=== PATIENT | female | born 1985 | race Caucasian/White ===

== ENCOUNTER 2017-05-25 08:00 | Outpatient (CLI) | payer OTHER | END 2017-05-25 08:01 | LOC: LAB.F 08:00 | DX: Z31.9 Encounter for procreative management, unspecified (principal) | CPT/HCPCS: 36415; 82465; 84144 ==

== ENCOUNTER 2018-07-29 13:58 | Emergency (ER) | payer MEDICAID, OTHER ==
[2018-07-29 14:31] LABS: BASOPHILS # (AUTO) 0.1 10^3/uL (0.0-0.1); BASOPHILS % (AUTO) 0.7 %; EOSINOPHILS # (AUTO) 0.2 10^3/uL (0.0-0.7); HGB - HEMOGLOBIN 13.6 g/dL (12.0-16.0); LYMPHOCYTES # (AUTO) 1.8 10^3/uL (1.5-3.5); LYMPHOCYTES % (AUTO) 20.5 %; MEAN CORPUSCULAR HEMOGLOBIN 30.6 pg (27.0-31.0); MEAN PLATELET VOLUME 7.2 fL (7.9-10.8); MONOCYTES # (AUTO) 0.5 10^3/uL (0.0-1.0); MONOCYTES % (AUTO) 5.6 %; NEUTROPHILS # (AUTO) 6.1 10^3/uL (1.5-6.6); NEUTROPHILS % (AUTO) 71.2 %; PLT - PLATELET COUNT 233 10^3/uL (130-450); RED BLOOD COUNT 4.45 10^6/uL (4.20-5.40); WHITE BLOOD COUNT 8.6 x10^3/uL (4.8-10.8)
[2018-07-29 14:40] LABS: BILIRUBIN,URINE NEGATIVE (NEGATIVE); GLUCOSE, URINE (UA) NEGATIVE (NEGATIVE); KETONES,URINE (UA) NEGATIVE (NEGATIVE); LEUKOCYTE ESTERASE, URINE NEGATIVE (NEGATIVE); NITRITE,URINE NEGATIVE (NEGATIVE); OCCULT BLOOD,URINE SMALL (NEGATIVE); PROTEIN,URINE NEGATIVE (NEGATIVE); UROBILINOGEN,URINE 0.2 (NORMAL) E.U./dL (NORMAL)
[2018-07-29 14:43] LABS: CLARITY,URINE CLEAR (CLEAR)
[2018-07-29 14:46] LABS: ALBUMIN/GLOBULIN RATIO 1.5 (1.0-2.2); BILIRUBIN,TOTAL 0.9 mg/dL (0.2-1.0); CALCIUM 8.9 mg/dL (8.5-10.3); CREATININE 0.9 mg/dL (0.4-1.0); TOTAL PROTEIN 6.7 g/dL (6.7-8.2)
[2018-07-29 14:56] LABS: BACTERIA,URINE Rare /HPF (None Seen); RBC,URINE 0-5 /HPF (0-5); SQUAMOUS EPITHELIAL CELL,UR RARE Squamous (<= Few)
--- NOTE | 2018-07-29 16:00 | ED Physician Documentation ---
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 Had a small amount of vaginal bleeding yesterday and light spotting today. Review of Systems Constitutional: denies: Fever, Chills Nose: denies: Rhinorrhea / runny nose, Congestion GI: denies: Vomiting, Diarrhea Skin: denies: Rash Musculoskeletal: denies: Neck pain, Back pain Neurologic: denies: Focal weakness, Numbness, Headache PD PAST MEDICAL HISTORY - Past Medical History Past Medical History: Yes - Past Surgical History Past Surgical History: No - Present Medications Home Medications: Ambulatory Orders Medication Instructions Recorded Confirmed Vitamin [Trinatal Rx 1] 1 tab PO DAILY #30 tablet 07/29/18 - Allergies Allergies/Adverse Reactions: Allergies Allergy/AdvReac Type Severity Reaction Status Date / Time No Known Drug Allergies Allergy Verified 07/29/18 14:05 - Social History Does the pt smoke?: No Smoking Status: Never smoker Does the pt drink ETOH?: No Does the pt have substance abuse?: No - Immunizations Immunizations are current?: Yes - POLST Patient has POLST: No PD ED PE NORMAL - Vitals Vital signs reviewed: Yes - General General: Alert and oriented X 3, No acute distress - HEENT HEENT: Moist mucous membranes - Neck Neck: Supple, no meningeal sign - Cardiac Cardiac: RRR, Strong equal pulses - Respiratory Respiratory: No respiratory distress, Clear bilaterally - Abdomen Abdomen: Soft, Non tender, Non distended - Derm Derm: Warm and dry - Extremities Extremities: No edema, No calf tenderness / cord - Neuro Neuro: Alert and oriented X 3 Results - Vitals Vitals: Vital Signs - 24 hr 07/29/18 07/29/18 07/29/18 14:04 14:05 16:55 Temperature 36.1 C L 36.1 C L 36.9 C Heart Rate 91 91 69 Respiratory 18 18 18 Rate Blood Pressure 161/80 H 161/80 H 134/91 H O2 Saturation 97 97 99 07/29/18 17:39 Temperature Heart Rate 79 Respiratory 17 Rate Blood Pressure 155/76 H O2 Saturation 99 Oxygen O2 Source Room air - Labs Labs: Laboratory Tests 07/29/18 07/29/18 07/29/18 14:20 14:20 14:20 WBC 8.6 RBC 4.45 Hgb 13.6 Hct 40.1 MCV 90.0 MCH 30.6 MCHC 34.0 RDW 13.0 Plt Count 233 MPV 7.2 L Neut # (Auto) 6.1 Lymph # (Auto) 1.8 Isabella # (Auto) 0.5 Eos # (Auto) 0.2 Baso # (Auto) 0.1 Absolute Nucleated RBC 0.00 Nucleated RBC % 0.0 Sodium 136 Potassium 3.9 Chloride 106 Carbon Dioxide 21 Anion Gap 9.0 BUN 13 Creatinine 0.9 Estimated GFR (MDRD) 72 L Glucose 102 H Calcium 8.9 Total Bilirubin 0.9 AST 20 ALT 23 Alkaline Phosphatase 28 L Total Protein 6.7 Albumin 4.0 Globulin 2.7 Albumin/Globulin Ratio 1.5 Lipase 42 HCG, Quant 32681.00 Urine Color Urine Clarity Urine pH Ur Specific [place] Urine Protein Urine Glucose (UA) Urine Ketones Urine Occult Blood Urine Nitrite Urine Bilirubin Urine Urobilinogen Ur Leukocyte Esterase Urine RBC Urine WBC Ur Squamous Epith Cells Urine Bacteria Ur Microscopic Review Urine Culture Comments Blood Type 07/29/18 07/29/18 14:20 14:34 WBC RBC Hgb Hct MCV MCH MCHC RDW Plt Count MPV Neut # (Auto) Lymph # (Auto) Isabella # (Auto) Eos # (Auto) Baso # (Auto) Absolute Nucleated RBC Nucleated RBC % Sodium Potassium Chloride Carbon Dioxide Anion Gap BUN Creatinine Estimated GFR (MDRD) Glucose Calcium Total Bilirubin AST ALT Alkaline Phosphatase Total Protein Albumin Globulin Albumin/Globulin Ratio Lipase HCG, Quant Urine Color YELLOW Urine Clarity CLEAR Urine pH 7.0 Ur Specific [place] 1.020 Urine Protein NEGATIVE Urine Glucose (UA) NEGATIVE Urine Ketones NEGATIVE Urine Occult Blood SMALL H Urine Nitrite NEGATIVE Urine Bilirubin NEGATIVE Urine Urobilinogen 0.2 (NORMAL) Ur Leukocyte Esterase NEGATIVE Urine RBC 0-5 Urine WBC 0-3 Ur Squamous Epith Cells RARE Squamous Urine Bacteria Rare Ur Microscopic Review INDICATED Urine Culture Comments NOT INDICATED Blood Type A POSITIVE - Rads (name of study) OB US Radiology: Prelim report reviewed, EMP read contemporaneously, See rad report (1. Intrauterine of uncertain viability. Early intrauterine gestational sac with size corresponding to a gestational age of 5 weeks 6 days. A pole is questionably visualized but not measurable. Recommend follow-up ultrasound in 7-10 days to assess viability. 2. Assigned dating is ANNEMARIE 6 weeks 0 days based on LMP. 3. There is a complex subchorionic hematoma measuring 3 x 2 x 3.3 cm. 4. There are 2 uterine masses, presumed fibroids. 5. Both ovaries are enlarged and contain hypoechoic structures suggestive of endometriomas. ) PD MEDICAL DECISION MAKING - ED course Complexity details: reviewed results, re-evaluated patient, considered differential, d/w patient, d/w family ED course: 32-year-old female presents to the emergency department what appears to be an intrauterine . There is a pole, heart rate of 130. We will have her follow-up with gynecology in approximately 3 days for repeat hCG. If that is going up, she will need a repeat ultrasound in 7-10 days. Patient is well- appearing, nontoxic. Afebrile. Not bleeding here. Patient counseled regarding signs and symptoms for which I believe and urgent re-evaluation would be necessary. Patient with good understanding of and agreement to plan and is comfortable going home at this time This document was made in part using voice recognition software. While efforts are made to proofread this document, sound alike and grammatical errors may occur. Departure - Departure Disposition: 01 Home, Self Care Clinical Impression: Threatened affecting intrauterine Condition: Good Instructions: ED Miscarriage Poss Follow-Up: [facility] [Provider Group] - Within 3 Days Jimmy Barlow MD [Provider Admit Priv/Credential] - Prescriptions: Vitamin [Trinatal Rx 1] 1 tab PO DAILY #30 tablet Comments[place] [address] [place]. You should have this retested in 2-3 days to make sure it is rising appropriately. Return if you worsen. You are approximately 5 weeks and 6 days along. Discharge Date/Time: 07/29/18 17:39
--- NOTE | 2018-07-29 17:39 | Ultrasound Report ---
Reason: 7 weeks EGA vag bleed Procedure Date: 07/29/2018 Accession Number: [id number] / [id number] Procedure: US - OB First Trimester CPT Code: FULL RESULT: EXAM: FIRST TRIMESTER OBSTETRIC ULTRASOUND (Less than 11 weeks) EXAM DATE: 07/29/2018 04:50 PM. CLINICAL HISTORY: 7 weeks EGA vag bleed. LMP: 06/17/2018. COMPARISONS: None available. TECHNIQUE: Transabdominal and transvaginal ultrasound examination with static image documentation. CLINICAL DATES: EGA 6 weeks 0 days with ANNEMARIE 03/24/2019 based on LMP. ASSESSMENT: Gestational Sac: Single intrauterine. Mean gestational sac diameter: 15.9 mm = 5 weeks 6 days. Embryo: CRL (crown-rump length) not accurately measurable Cardiac activity: The technologist measured a rate of beats per minute but I am not confident based on the image that this is the heart rate. Yolk sac: 3 mm. Amniotic fluid: Not accurately assessed at this gestational age. Early placenta: Not visible at this gestational age. Other: There is a complex subchorionic hematoma measuring 3 x 2 x 3.3 cm. MATERNAL STRUCTURES: Uterus: Retroverted. 1. There is a 2.8 x 2.3 x 3 cm subserosal mass, presumed fibroid at the fundus. 2. There is a 2.6 x 2.4 x 2.6 cm intramural mass, presumed fibroid at the fundus. Cervix: Closed. Right Ovary/Adnexa: The ovary measures 8.3 x 5.5 x 5.3 cm, volume 54 cc. There is a hypoechoic structure with low-level internal echoes measuring 5 x 4 x 5 cm. Left Ovary/Adnexa: The ovary measures 2.4 x 4.3 x 2.9 cm, volume 37 cc. There is a hypoechoic structure with low-level internal echoes measuring 2.5 x 2 x 2.7 cm. Free Fluid: None. Other: None. IMPRESSION: 1. Intrauterine of uncertain viability. Early intrauterine gestational sac with size corresponding to a gestational age of 5 weeks 6 days. A pole is questionably visualized but not measurable. Recommend follow-up ultrasound in 7-10 days to assess viability. 2. Assigned dating is ANNEMARIE 6 weeks 0 days based on LMP. 3. There is a complex subchorionic hematoma measuring 3 x 2 x 3.3 cm. 4. There are 2 uterine masses, presumed fibroids. 5. Both ovaries are enlarged and contain hypoechoic structures suggestive of endometriomas. RADIA
[2018-07-29 17:40] VITALS: BP 155/76
== END 2018-07-29 17:39 | disposition home or self-care (01) ==
LOC: ED 13:58
DX: O20.0 Threatened abortion (principal); Z3A.01 Less than 8 weeks gestation of pregnancy
CPT/HCPCS: 36415; 76801; 76817; 80053; 81001; 81003; 83690; 84702; 85025; 86900; 86901; 87070; 87086; 87205; 99283

== ENCOUNTER 2018-08-01 13:47 | Outpatient (CLI) | payer MEDICAID | END 2018-08-01 13:48 | disposition home or self-care (01) | LOC: LAB.F 13:47 | PROVIDERS: ATTEND Midwife | DX: Z31.9 Encounter for procreative management, unspecified (principal); Z33.1 Pregnant state, incidental | CPT/HCPCS: 36415; 81599; 84702 ==

== ENCOUNTER 2018-09-09 13:11 | Outpatient (CLI) | payer MEDICAID ==
--- NOTE | 2018-09-09 15:30 | Ultrasound Report ---
Reason: Procedure Date: 09/09/2018 Accession Number: [id number] / [id number] Procedure: US - OB First Trimester CPT Code: FULL RESULT: EXAM: FIRST TRIMESTER OBSTETRIC ULTRASOUND (Less than 11 weeks) EXAM DATE: 09/09/2018 02:00 PM. CLINICAL HISTORY: . LMP: 06/17/2018. COMPARISONS: None. TECHNIQUE: Transabdominal ultrasound examination with static image documentation. CLINICAL DATES: EGA 12 weeks 0 days with ANNEMARIE 03/24/2019 based on LMP. ASSESSMENT: Gestational Sac: Not applicable. Embryo: CRL (crown-rump length) 6 mm = 12 weeks 4 days. Cardiac activity: 169 beats per minute. Yolk sac: Not applicable. Amniotic fluid: Not accurately assessed at this gestational age. Early placenta: Posterior and lateral in the fundus. Other: No perigestational fluid collection demonstrated. MATERNAL STRUCTURES: Uterus: Anteverted. Multiple fibroids are noted measuring up to 4.5 cm. Cervix: Closed. Right Ovary/Adnexa: The ovary measures 5.1 x 4.4 x 4.9 cm, volume 58 cc. 4.1 x 4.4 x 3.8 cm cyst is noted. Left Ovary/Adnexa: The ovary measures 5.5 x 3.2 x 4.1 cm, volume 37 cc. Note is made of a 4.0 x 3.2 x 3.2 cm cyst. Free Fluid: None. Other: None. IMPRESSION: 1. Single viable intrauterine at EGA 12 weeks 4 days with ANNEMARIE 03/20/2019 based on crown-rump length, which is concordant with clinical dates. 2. Assigned dating is ANNEMARIE 12 weeks 0 days based on LMP. KEVIN
== END 2018-09-09 13:12 | disposition home or self-care (01) ==
LOC: DI 13:11
PROVIDERS: ATTEND Obstetrics & Gynecology
DX: O36.80X0 Pregnancy with inconclusive fetal viability, not applicable or unspecified (principal); Z3A.12 12 weeks gestation of pregnancy
CPT/HCPCS: 76801

== ENCOUNTER 2018-10-17 14:48 | Outpatient (CLI) | payer MEDICAID ==
[2018-10-17 15:16] LABS: BASOPHILS % (AUTO) 0.2 %; EOSINOPHILS # (AUTO) 0.1 10^3/uL (0.0-0.7); EOSINOPHILS % (AUTO) 1.1 %; HGB - HEMOGLOBIN 12.5 g/dL (12.0-16.0); LYMPHOCYTES # (AUTO) 1.4 10^3/uL (1.5-3.5); LYMPHOCYTES % (AUTO) 16.8 %; MEAN CORPUSCULAR VOLUME 91.3 fL (81.0-99.0); MEAN PLATELET VOLUME 9.2 fL (7.9-10.8); MONOCYTES # (AUTO) 0.4 10^3/uL (0.0-1.0); MONOCYTES % (AUTO) 4.7 %; NEUTROPHILS # (AUTO) 6.4 10^3/uL (1.5-6.6); NEUTROPHILS % (AUTO) 76.6 %; PLT - PLATELET COUNT 223 10^3/uL (130-450); RED BLOOD COUNT 3.91 10^6/uL (4.20-5.40); RED CELL DISTRIBUTION WIDTH 12.4 % (12.0-15.0); WHITE BLOOD COUNT 8.3 x10^3/uL (4.8-10.8)
[2018-10-17 15:18] LABS: MUDS CUTOFF CONCENTRATIONS CUTOFF CONC BELOW:
[2018-10-17 15:37] LABS: AMPHETAMINE SCREEN,URINE NEGATIVE (NEGATIVE); BENZODIAZEPINES SCREEN, URINE NEGATIVE (NEGATIVE); COCAINE SCREEN URINE NEGATIVE (NEGATIVE); METHAMPHETAMINES SCREEN, URINE NEGATIVE (NEGATIVE); OPIATE SCREEN, URINE NEGATIVE (NEGATIVE)
[2018-10-17 15:38] LABS: METHADONE SCREEN, URINE NEGATIVE (NEGATIVE); OXYCODONE SCREEN, URINE NEGATIVE (NEGATIVE); PROPOXYPHENE SCREEN, URINE NEGATIVE (NEGATIVE); TRICYCLIC ANTIDEPRESSANT,URINE NEGATIVE (NEGATIVE)
[2018-10-18 13:26] LABS: HEPATITIS C ANTIBODY NON-REACTIVE (NON-REACTIVE)
[2018-10-18 13:27] LABS: HEPATITIS B SURFACE ANTIGEN NON-REACTIVE (NON-REACTIVE)
[2018-10-18 14:47] LABS: HIV AG/AB 4TH GEN NON-REACTIVE (NON-REACTIVE)
== END 2018-10-17 14:49 | disposition home or self-care (01) ==
LOC: LAB 14:48
PROVIDERS: ATTEND Obstetrics & Gynecology
DX: Z33.1 Pregnant state, incidental (principal)
CPT/HCPCS: 80306; 81599; 85025; 86592; 86762; 86803; 86850; 86900; 86901; 87340; 87389

== ENCOUNTER 2018-10-26 15:59 | Outpatient (CLI) | payer MEDICAID | END 2018-10-26 16:00 | disposition home or self-care (01) | LOC: LAB 15:59 | PROVIDERS: ATTEND Nurse Practitioner Obstetrics & Gynecology | DX: Z36.89 Encounter for other specified antenatal screening (principal) | CPT/HCPCS: 36415; 81599; 82105; 82677; 84702; 86336 ==

== ENCOUNTER 2018-11-03 13:59 | Outpatient (CLI) | payer MEDICAID ==
--- NOTE | 2018-11-04 09:15 | Ultrasound Report ---
Reason: ENCOUNTER FOR OTHER SPECIFIED SCREENING Procedure Date: 11/03/2018 Accession Number: [id number] / [id number] Procedure: US - OB Detailed Eval CPT Code: FULL RESULT: EXAM: COMPLETE OBSTETRICAL ULTRASOUND EXAM DATE: 11/03/2018 04:00 PM. CLINICAL HISTORY: anatomic survey. COMPARISON: None. TECHNIQUE: Real-time sonographic evaluation of the fetus performed by the pantry steward/stewardess. Multiple medical sales representative static images were saved for review. Additional transvaginal imaging to more accurately evaluate cervical length/placental position/etc. DATING: Established EGA 19 weeks 6 days with ANNEMARIE 03/24/2019 based on LMP. EGA 20 weeks 3 days with ANNEMARIE 03/20/2019 based on first ultrasound. EGA 20 weeks 2 days with ANNEMARIE 03/21/2019 based on the current ultrasound. GENERAL EVALUATION [place] . Cardiac activity: 163 bpm. movement: Visualized. Presentation: Variable, predominantly breech. Placenta: Posteriorly and to the right position. No evidence for previa. Umbilical cord: 3 vessel cord. Central placental cord origin. Amniotic fluid: Subjectively normal. MVP 5.2 cm. BIOMETRY Bi-Parietal Diameter (BPD): 4.9 cm, 20 weeks 6 days Head Circumference (HC): 18.3 cm, 20 weeks 5 days Abdominal Circumference (AC): 14.7 cm, 20 weeks 0 days Femur Length (FL): 3 cm, 19 weeks 2 days Estimated Weight: 314 g, 42nd percentile for 19 weeks 6 days. ANATOMY The intracranial structures, profile, face/nose/lips, spine, 4 chamber heart and outflow tracts, stomach, abdominal wall and cord insertion, diaphragm, kidneys, bladder, and extremities were visualized and demonstrate no abnormality. MATERNAL STRUCTURES Uterus: Overall within normal limits, known fibroids are not well seen today. Cervix: Long and closed. Transabdominal length 4.5 cm. Right ovary/adnexa: 4.8 x 3.5 x 4.5 cm cystic structure. Left ovary/adnexa: 2.8 x 2.0 x 2.3 cm cystic structure. Free fluid: None. IMPRESSION: 1. [place] live intrauterine with gestational age 19 weeks 6 days based on LMP. 2. Estimated weight is within expected limits for assigned dating. 3. Normal anatomic survey. No anatomic abnormalities are detected at this time. RADIA
== END 2018-11-03 14:00 | disposition home or self-care (01) ==
LOC: DI 13:59
PROVIDERS: ATTEND Nurse Practitioner Obstetrics & Gynecology
DX: Z36.89 Encounter for other specified antenatal screening (principal)
CPT/HCPCS: 76811

== ENCOUNTER 2018-12-21 12:15 | Outpatient (CLI) | payer MEDICAID ==
[2018-12-21 13:41] LABS: HGB - HEMOGLOBIN 11.6 g/dL (12.0-16.0); MEAN CORPUSCULAR HEMOGLOBIN 33.2 pg (27.0-31.0); MEAN CORPUSCULAR HGB CONC 35.7 g/dL (32.0-36.0); MEAN CORPUSCULAR VOLUME 93.1 fL (81.0-99.0); MEAN PLATELET VOLUME 9.1 fL (7.9-10.8); RED BLOOD COUNT 3.49 10^6/uL (4.20-5.40); RED CELL DISTRIBUTION WIDTH 12.5 % (12.0-15.0); WHITE BLOOD COUNT 9.2 x10^3/uL (4.8-10.8)
== END 2018-12-21 12:16 | disposition home or self-care (01) ==
LOC: LAB 12:15
PROVIDERS: ATTEND Nurse Practitioner Obstetrics & Gynecology
DX: Z36.89 Encounter for other specified antenatal screening (principal)
CPT/HCPCS: 36415; 82950; 85027; 86850

== ENCOUNTER 2018-12-23 09:57 | Outpatient (CLI) | payer MEDICAID | END 2018-12-23 09:58 | disposition home or self-care (01) | LOC: LAB 09:57 | PROVIDERS: ATTEND Nurse Practitioner Obstetrics & Gynecology | DX: Z34.90 Encounter for supervision of normal pregnancy, unspecified, unspecified trimester (principal); Z36.89 Encounter for other specified antenatal screening | CPT/HCPCS: 36415; 82951; 82952 ==

== ENCOUNTER 2019-02-28 08:00 | Outpatient (CLI) | payer MEDICAID | END 2019-02-28 23:59 | disposition home or self-care (01) | LOC: LAB.R 08:00 | PROVIDERS: ATTEND Nurse Practitioner Obstetrics & Gynecology | DX: Z36.89 Encounter for other specified antenatal screening (principal) | CPT/HCPCS: 87081; 87797 ==

== ENCOUNTER 2019-02-28 14:51 | Outpatient (CLI) | payer MEDICAID ==
[2019-02-28 15:21] LABS: MEAN CORPUSCULAR HEMOGLOBIN 32.7 pg (27.0-31.0); MEAN CORPUSCULAR HGB CONC 34.4 g/dL (32.0-36.0); MEAN CORPUSCULAR VOLUME 95.1 fL (81.0-99.0); MEAN PLATELET VOLUME 10.2 fL (7.9-10.8); RED BLOOD COUNT 4.28 10^6/uL (4.20-5.40); RED CELL DISTRIBUTION WIDTH 13.1 % (12.0-15.0); WHITE BLOOD COUNT 7.3 x10^3/uL (4.8-10.8)
[2019-02-28 15:28] LABS: ALBUMIN 3.6 g/dL (3.2-5.5); ALBUMIN/GLOBULIN RATIO 1.1 (1.0-2.2); BILIRUBIN,TOTAL 0.9 mg/dL (0.2-1.0); CALCIUM 9.2 mg/dL (8.5-10.3); CREATININE 0.6 mg/dL (0.4-1.0); TOTAL PROTEIN 6.8 g/dL (6.7-8.2); URIC ACID 7.6 mg/dL (2.6-7.2)
== END 2019-02-28 14:52 | disposition home or self-care (01) ==
LOC: LAB 14:51
PROVIDERS: ATTEND Nurse Practitioner Obstetrics & Gynecology
DX: R03.0 Elevated blood-pressure reading, without diagnosis of hypertension (principal)
CPT/HCPCS: 36415; 80053; 84550; 85027

== ENCOUNTER 2019-03-07 08:00 | Outpatient (CLI) | payer MEDICAID ==
[2019-03-08 13:04] LABS: TOTAL PROTEIN,URINE TIMED < 6 mg/dL
== END 2019-03-07 08:01 | disposition home or self-care (01) ==
LOC: LAB.R 08:00
PROVIDERS: ATTEND Nurse Practitioner Obstetrics & Gynecology
DX: O13.3 Gestational [pregnancy-induced] hypertension without significant proteinuria, third trimester (principal); Z3A.00 Weeks of gestation of pregnancy not specified
CPT/HCPCS: 82570; 84156

== ENCOUNTER 2019-03-07 15:02 | Outpatient (CLI) | payer MEDICAID ==
[2019-03-07 15:24] LABS: HGB - HEMOGLOBIN 13.7 g/dL (12.0-16.0); MEAN CORPUSCULAR HEMOGLOBIN 32.5 pg (27.0-31.0); MEAN CORPUSCULAR HGB CONC 34.9 g/dL (32.0-36.0); MEAN CORPUSCULAR VOLUME 93.3 fL (81.0-99.0); RED BLOOD COUNT 4.21 10^6/uL (4.20-5.40); RED CELL DISTRIBUTION WIDTH 13.3 % (12.0-15.0); WHITE BLOOD COUNT 7.2 x10^3/uL (4.8-10.8)
[2019-03-07 15:40] LABS: ALBUMIN 3.4 g/dL (3.2-5.5); ALBUMIN/GLOBULIN RATIO 1.1 (1.0-2.2); BILIRUBIN,TOTAL 0.5 mg/dL (0.2-1.0); CALCIUM 8.8 mg/dL (8.5-10.3); CREATININE 0.7 mg/dL (0.4-1.0); TOTAL PROTEIN 6.6 g/dL (6.7-8.2); URIC ACID 6.8 mg/dL (2.6-7.2)
== END 2019-03-07 15:03 | disposition home or self-care (01) ==
LOC: LAB 15:02
PROVIDERS: ATTEND Nurse Practitioner Obstetrics & Gynecology
DX: O13.3 Gestational [pregnancy-induced] hypertension without significant proteinuria, third trimester (principal); Z3A.00 Weeks of gestation of pregnancy not specified
CPT/HCPCS: 36415; 80053; 84550; 85027

== ENCOUNTER 2019-03-17 12:17 | Inpatient (IN) | payer MEDICAID ==
[2019-03-17] MEDS ORDERED: SODIUM CHLORIDE FLUSH 0.9% 10 ML SYRINGE IVP PRN (12:27)
--- NOTE | 2019-03-17 12:37 | HISTORY & PHYSICAL EXAMINATION ---
Admit History - Visit Reason Visit Reason: Other - : 1 Parity: 0 Premature: 0 Ectopic: 0 : 0 Care: positive: [facility] Risk/History: positive: None Complications This : positive: induced HTN Smoking Status: Never smoker - Mother's Labs Mother's Blood Type: positive: A Mother's RH: positive: Positive GBS: positive: Group B Step Negative Rubella Status: positive: Immune Meds/Allgy - Home Medications Home Medications: Ambulatory Orders Medication Instructions Recorded Confirmed Vitamin [Trinatal Rx 1] 1 tab PO DAILY #30 tablet 07/29/18 - Allergies Allergies/Adverse Reactions: Allergies Allergy/AdvReac Type Severity Reaction Status Date / Time No Known Drug Allergies Allergy Verified 07/29/18 14:05 Review of Systems - Constitutional Constitutional: denies: Fatigue, Fever, Chills, Malaise - Eyes Eyes: denies: Blurred vision, Spots in vision, Dipolpia - Cardiovascular Cariovascular: denies: Irregular heart rate, Palpitations, Chest pain, Edema - Respiratory Respiratory: denies: SOB at rest - Gastrointestinal Gastrointestinal: denies: Abdominal pain, Change in bowel habits, Nausea, Vomiting - Integumentary Integumentary: denies: Rash, Pruritis - Neurological Neurological: denies: Headache, Dizziness Physical - Abdominal Exam Uterine Resting Tone: positive: Soft - Monitoring Heart Rate Baseline: 140 Strip Review: positive: Category I - Presentation Presentation: positive: Vertex - Vaginal Exam Membranes: positive: Membranes intact - Speculum Exam Speculum Exam Performed: positive: No Plan for Labor - Plan For Labor I expect patient to be DC'd or transferred within 96 hours.: Yes Plan for Labor: HPI: Elvira is a 33yo @ 39.0wks gestation by 12.0wk U/S c/w LMP dating. She has been a patient of [facility] through the duration of her which has been complicated only by her recent diagnosis of gestational hypertension and an elevated 1 hour GTT with a 3 hr GTT which was WNL. She presents today for medical induction of labor secondary to gestational hypertension. Of note she did suffer from a significant flare up of hemorrhoids during her early third trimester which have since resolved. She presents today with her Cher and their daughter Brian. Today she denies DICKERSON, visual disturbances, RUQ or epigastric pain or edema. She was admitted to [facility] for management. Dating criteria: LMP 06/17/2018 Initial ultrasound at 12.0wks gestation - agrees Serial exams - agree OB History: G1: Current Medications: Hydrocortisone rectal cream PRN; PNV Allergies: Apples, peaches, cantaloupe (mild) PMHx: Unremarkable Surgical Hx: [place] teeth removal Social Hx: Never smoker, no ETOH of IVDA. Cher, daughter Brian Family Hx: Breast cancer - mother; Diabetes - father labs: Blood type A positive, antibody neg Hgb 13.7; hct 39.3; PLT 179 Rubella immune RPR non-reactive Hep B neg GC/CT neg HIV neg varicella immune 1 hour GTT elevated-155; 3 hour GTT WNL - 80, 155, 147, 136 GBS neg Vaccinations: Tdap 01/13/2019 Influenza 01/13/2019 Ultrasounds: Initial ultrasound @ 12.0wks gestation c/w LMP dating FAS WNL. Posterior placenta, no previa. 3VC. Size c/w dating. Physical Exam: Normocephalic, atraumatic Heart RRR w/o M/G/R Lungs CTAB Abdomen gravid, soft, nontender EFW 3100g FHR Category I Bilateral LE's no edema DTRs 2+, no clonus Assessment: 33yo @ 39.0wks gestation by LMP c/w 12wk U/S Gestational HTN GBS negative Plan: Medical induction of labor for gestational hypertension with pre-induction cervical ripening with misoprostol 50mcg BC q 4 hours Continuous monitoring Repeat PIH labs now and q 24 hours - more frequent if clinically indicated Jacuzzi PRN; nitrous oxide PRN Epidural per maternal request Anticipate
[2019-03-17 13:38] LABS: BASOPHILS % (AUTO) 0.4 %; EOSINOPHILS % (AUTO) 0.6 %; HGB - HEMOGLOBIN 13.7 g/dL (12.0-16.0); LYMPHOCYTES # (AUTO) 1.5 10^3/uL (1.5-3.5); LYMPHOCYTES % (AUTO) 21.5 %; MEAN CORPUSCULAR HEMOGLOBIN 32.8 pg (27.0-31.0); MEAN CORPUSCULAR HGB CONC 34.9 g/dL (32.0-36.0); MEAN CORPUSCULAR VOLUME 93.8 fL (81.0-99.0); MEAN PLATELET VOLUME 10.2 fL (7.9-10.8); MONOCYTES # (AUTO) 0.4 10^3/uL (0.0-1.0); MONOCYTES % (AUTO) 6.1 %; NEUTROPHILS # (AUTO) 5.1 10^3/uL (1.5-6.6); NEUTROPHILS % (AUTO) 70.8 %; PLT - PLATELET COUNT 160 10^3/uL (130-450); RED BLOOD COUNT 4.18 10^6/uL (4.20-5.40); RED CELL DISTRIBUTION WIDTH 13.2 % (12.0-15.0); WHITE BLOOD COUNT 7.2 x10^3/uL (4.8-10.8)
[2019-03-17] MEDS: miSOPROStoL 100 MCG TABLET BC SCH ×3 (13:47→21:57)
[2019-03-17 14:47] LABS: URIC ACID 7.2 mg/dL (2.6-7.2)
[2019-03-17 14:59] LABS: CREATININE,URINE 52.1 mg/dL; PROTEIN/CREATININE RATIO,URINE 0.1 (<=0.2)
[2019-03-17] MEDS ORDERED: SODIUM CHLORIDE FLUSH 0.9% 10 ML SYRINGE IVP SCH (17:00)
[2019-03-17] MEDS ORDERED: LABETALOL 100 MG TABLET PO SCH (23:00)
[2019-03-18 00:57] LABS: BASOPHILS % (AUTO) 0.4 %; EOSINOPHILS # (AUTO) 0.1 10^3/uL (0.0-0.7); EOSINOPHILS % (AUTO) 0.9 %; LYMPHOCYTES # (AUTO) 2.1 10^3/uL (1.5-3.5); LYMPHOCYTES % (AUTO) 28.1 %; MEAN CORPUSCULAR HEMOGLOBIN 33.4 pg (27.0-31.0); MEAN CORPUSCULAR HGB CONC 35.4 g/dL (32.0-36.0); MEAN CORPUSCULAR VOLUME 94.5 fL (81.0-99.0); MEAN PLATELET VOLUME 10.5 fL (7.9-10.8); MONOCYTES # (AUTO) 0.5 10^3/uL (0.0-1.0); MONOCYTES % (AUTO) 6.8 %; NEUTROPHILS # (AUTO) 4.8 10^3/uL (1.5-6.6); NEUTROPHILS % (AUTO) 63.1 %; PLT - PLATELET COUNT 162 10^3/uL (130-450); RED BLOOD COUNT 4.19 10^6/uL (4.20-5.40); RED CELL DISTRIBUTION WIDTH 13.2 % (12.0-15.0); WHITE BLOOD COUNT 7.6 x10^3/uL (4.8-10.8)
[2019-03-18] MEDS ORDERED: LABETALOL 100 MG TABLET PO SCH ×2 (01:00→22:26)
[2019-03-18 01:08] LABS: URIC ACID 7.1 mg/dL (2.6-7.2)
[2019-03-18] MEDS ORDERED: LACTATED RINGERS 1,000 ML IV ONE (02:13)
[2019-03-18] MEDS ORDERED: OXYTOCIN/DEXTROSE 5 % 30 UNIT/500 ML BAG IV ONE ×2 (03:13→05:03)
[2019-03-18] MEDS ORDERED: LIDOCAINE-MPF 1% 30 ML VIAL ONE (03:34)
[2019-03-18] MEDS ORDERED: HYDROCORTISONE 1% CREAM 28 GM TUBE PR PRN (05:14)
[2019-03-18] MEDS ORDERED: WITCH HAZEL/GLYCERIN 1 PAD TOP PRN (05:14)
[2019-03-18] MEDS ORDERED: OXYTOCIN/DEXTROSE 5 % 30 UNIT/500 ML BAG IV PRN (05:15)
--- NOTE | 2019-03-18 05:24 | DELIVERY NOTE ---
Delivery Note - Labor Labor: positive: Spontaneous - Delivery Method Delivery Method: positive: Spontaneous vaginal delivery - Cervical Ripening Method Cervical Ripening Method: positive: Misoprostil - Presentation Presentation: positive: Vertex, AIMEE - right occiput anterior - Nuchal Cord Nuchal Cord: positive: None - Amniotic Fluid Description Amniotic Fluid Description: positive: Clear - Episiotomy Type Episiotomy Type: positive: None - Laceration Laceration: positive: 2nd degree, Perineal - Suture Suture Type: positive: Vicryl Suture Size: positive: 2-0 - Delivery Outcome Delivery Outcome: positive: Livebirth - [place] : positive: Placed in direct skin contact with mother, Bulb syringe, Stimulated, Warmed, Ralph used sex: positive: Male - Cord Cord: positive: 3 vessels - Placenta Placenta: positive: Intact, Spontaneous - Estimated Blood Loss Estimated Blood Loss (in cc): 350 - Post Delivery Events Post Delivery Events: positive: No post delivery events - Delivery Comments (Free Text/Narrative) Delivery Comments (Free Text/Narrative): Labor: This 33yo @ 39.1wks gestation by LMP c/w 12wk U/S presented at 1215 on 03/17/2019 for medical induction of labor secondary to gestational hypertension. Cervix was 1/thick/high, posterior, soft, vertex. She was give 50mcg BC misoprostol q 4 hours for a total of 3 doses. SROM occurred at 0020 and was noted to be a moderate amount of clear fluid. FHR pattern demonstrated Categ ory I baseline with intermittent periods of Category II secondary to recurrent variable decelerations but overall reassuring. Pt was given a total of 300mg of PO labetolol secondary to hypertension that progressed from moderate to severe range. She continually denied DICKERSON, visual disturbances, RUQ or epigastric pain. Her PIH labs were drawn 12 hours apart and remained WNL. The patient progressed to c/c/0 with spontaneous urge to push at 0305. : Normal of viable male infant at 0356 on 03/18/2019. No nuchal cord. The was stimulated, dried, and placed skin to skin. 's were 9/9 at 1 and 5 min respectively. The umbilical cord was allowed to stop pulsating at which time it was doubly clamped by CNM and cut by MOB. Pitcoin administered via IV for hemostasis. Cord blood was obtained. Placenta delivered spontaneously and intact at 0410. 3VC. EBL 350mL. Uterine fundus firm and there is no excessive bleeding. The perineum, vagina, and cervix were inspected and found to have a 2nd degree perineal laceration which was repaired using a 2-[address]-1 needle in standard fashion under sterile conditions. Vaginal and rectal examination following repair were done. Tissues well approximated. initiated. Family bonding well. Both mother and baby were left in stable condition.
[2019-03-18] MEDS ORDERED: LIDOCAINE 1% 50 ML MDV TD ONE (05:31)
[2019-03-18] MEDS ORDERED: LACTATED RINGERS 1,000 ML IV SCH (06:00)
[2019-03-18] MEDS: IBUPROFEN 800 MG TABLET PO SCH ×3 (06:42→18:44)
[2019-03-18 06:43] LABS: PROTEIN/CREATININE RATIO,URINE 0.1 (<=0.2)
[2019-03-18] MEDS: ACETAMINOPHEN 500 MG TABLET PO SCH ×2 (08:54→18:44)
[2019-03-18] MEDS: PRENATAL VITAMIN TABLET PO SCH (08:54)
[2019-03-18] MEDS: DOCUSATE SODIUM 100 MG CAPSULE PO SCH ×2 (08:55→21:02)
[2019-03-19] MEDS: IBUPROFEN 800 MG TABLET PO SCH ×2 (01:49→08:35)
[2019-03-19] MEDS: ACETAMINOPHEN 500 MG TABLET PO SCH ×2 (04:38→13:11)
[2019-03-19] MEDS: PRENATAL VITAMIN TABLET PO SCH (08:34)
[2019-03-19] MEDS: DOCUSATE SODIUM 100 MG CAPSULE PO SCH (08:34)
[2019-03-19 08:39] VITALS: BP 132/81
--- NOTE | 2019-03-19 09:48 | Discharge Plan ---
Discharge Plan Problem Reviewed?: Yes Disposition: Home, Self Care Condition: Good Diet: Regular Activity Restrictions: No Restrictions Shower Restrictions: No Driving Restrictions: No Weight Bearing: Full Weight No Smoking: If you smoke, Please STOP! Call for help. Follow-up with: Shahida Wiley CNM, ARNP [Provider Admit Priv/Credential] -
--- NOTE | 2019-03-19 10:04 | PROVIDER PROGRESS NOTE ---
Subjective - Subjective Subjective: FINAL PROGRESS NOTE: S: Bonding well with baby. without difficulty. Pain is well controlled with oral medications. Bleeding decreased and is light. They are excited to get to go home today. O: BP stable and all BPs less than 140/90. Heart RRR w/o M/G/R, lungs CTAB, abdomen soft and nontender with fundus firm at U. Perineum intact and repair with mild edema. Bilateral LE's no edema. A: 33yo -->P1 PPD#2 s/p TSVD of viable male infant 2nd degree perineal laceration - intact P: Reviewed pp self care and warning s/sx Advised continuation of PNV while . Encouraged OTC ibuprofen and tylenol for pain management PRN. F/u in 1 week for support visit PRN and in 3 weeks for routine pp visit. Pt and partner verbalized understanding and agree to above plan. They deny further questions or concern at this time. Objective - Vital Signs/Intake & Output Vital Signs: Vital Signs x48h Temp Pulse Resp BP Pulse Ox 03/19/19 08:36 36.7 C 95 18 132/81 H 100 Intake & Output: Intake & Output 03/16/19 03/17/19 03/18/19 03/19/19 23:59 23:59 23:59 23:59 Intake Total 1020 Output Total 1500 Balance -480 - Lab Results Fish Bones: 03/18/19 00:50
--- NOTE | 2019-03-19 14:16 | Labor Flowsheet ---
Labor Flowsheet Datetime Report Generated by CPN: 03/19/2019 14:16 Datetime: 03/19/2019 08:39 VITAL SIGNS NBP Sys/Nolvia/Mean (mmHg): 132 : 81 : 93 Pulse: 90 LaborFlag: Labor Datetime: 03/18/2019 04:00 Membranes Ruptured Date/Time: 03/18/2019 00:20 Datetime: 03/18/2019 03:31 STAGE 2 Pushing: Coached on Pushing Pushing Position: Pushing with Contractions; Pushing Right Side Pushing Progress: Descent with Pushing Datetime: 03/18/2019 03:30 UTERINE ACTIVITY Monitor Mode: External Frequency (min): 3 Quality: Strong Duration (sec): 60-90 ASSESSMENT A Monitor Mode: Telemetry FHR Baseline Rate : 135 Variability: Moderate 6-25 bpm Accelerations: 15X15 Decelerations: Variable Datetime: 03/18/2019 03:19 COMMUNICATION Communication: Provider at Bedside Datetime: 03/18/2019 03:07 Provider Notified (Name): A Saurabh Notification Reason: Status Update; Status; Labor Status Datetime: 03/18/2019 03:05 VAGINAL EXAM Dilatation (cm): 10.0 Station: 0 Exam by: J Vernell Datetime: 03/18/2019 02:53 Monitor Interventions for UA: Fall Branch Adjusted Datetime: 03/18/2019 02:27 MEDICATIONS Pitocin (milliunits): Started @ Medication Comments: LR bolus started Datetime: 03/18/2019 02:24 Communication Comments: paged anesthesia for epidural placement, provider in ED will come to unit w hen available Datetime: 03/18/2019 02:13 Patient Position/Activity: Left Lateral Datetime: 03/18/2019 01:33 Respirations: 18 Datetime: 03/18/2019 01:29 Resting Tone (Palpate): Relaxed Oxygen Method: Room Air Datetime: 03/18/2019 01:16 Temperature (C): 37.0 Datetime: 03/18/2019 01:12 Comfort Measures: Hot Shower/Tub/Spa Datetime: 03/18/2019 01:01 Pattern: Normal: <= 5 Contractions in 10 Minutes Contraction Comments: pt co 3/10 pain contractions PAIN Pain Presence: Intermittent Pain Type: Cramping Pain Location: Abdomen Pain Relief Measures: Comfort Measures Pain Coping: Breathing Through Contractions Membrane Status: Ruptured Membranes Rupture Method: Spontaneous Amniotic Fluid Color: Clear Amniotic Fluid Amount: Small Amniotic Fluid Odor: None MATERNAL ASSESSMENT Level of Consciousness: Fully Conscious Headache: Denies RUQ Epigastric Pain: Denies I/O Interventions: Clear Liquids Given ANESTHESIA Anesthesia Plans: None Datetime: 03/18/2019 00:57 Effacement (%): 90 Vaginal Bleeding: None Cervix, Consistency: Soft Cervix, Position: Midposition Datetime: 03/18/2019 00:36 Stage of : Labor Datetime: 03/18/2019 00:00 Category: Category I Patient Care Comments: pt sleeping Datetime: 03/17/2019 23:06 Monitor Interventions for FHR: Ultrasound Adjusted Datetime: 03/17/2019 22:59 Nausea/Vomiting: Denies Datetime: 03/17/2019 22:20 Cervical Ripening Agents: Cervidil Datetime: 03/17/2019 22:01 Vital Sign Comments: pt sitting up for BP, will recheck when laying down Datetime: 03/17/2019 20:04 Temperature Route: Oral Datetime: 03/17/2019 19:30 Resting Tone IUP (mmHg): soft Intensity IUP (mmHg): mild Datetime: 03/17/2019 19:19 Breath Sounds, Left: Clear and Equal Breath Sounds, Right: Clear and Equal PATIENT CARE IV/Blood Work: IV Saline Locked TEACHING Instructional Method: Verbal Plan of Care: Plan of Care Discussed; Induction Unit Routine: [place] to Room; Call [place]aird; Bed; Infant Security; Phone/Cell Phone Use; Unit Personnel ; Monitoring; IV Pumps; Safety/Fall Risk Prevention; Bathroom Privileges Labor/Induction: Labor Stages; Cervical Ripening; Induction Related: Activity and Rest Datetime: 03/17/2019 18:03 SpO2 (%): 100 Datetime: 03/17/2019 16:30 Comments: Wandering baseline (130-145)
--- NOTE | 2019-03-19 17:56 | DISCHARGE SUMMARY ---
Physician: RAMSEY Sánchez DATE OF ADMISSION: 03/18/2019 DATE OF DISCHARGE: 03/19/2019 DIAGNOSES ON ADMISSION: 1. A 33-year-old G1, P0, at 39.0 weeks gestation by LMP consistent with 12-week ultrasound. 2. Gestational hypertension. 3. Group B Streptococcus negative. DIAGNOSES ON DISCHARGE: 1. A 33-year-old G1, P1-0-0-1, status post spontaneous vaginal delivery on 03/18/2019. 2. Second-degree perineal laceration intact. 3. . 4. Normal recovery. HISTORY OF PRESENT ILLNESS: She is a patient of [facility] [place] who presented on 019 for induction of labor secondary to gestational hypertension. Cervix was 1 cm dilated, thick, hi gh, posterior, soft, and vertex position. She was given 50 mcg of buccal misoprostol q.4 hours for a total of 3 doses. Spontaneous rupture of membranes occurred at 0020 and there was noted to be a mod erate amount of clear fluid. The patient progressed to spontaneously deliver a viable male at 0356 on 03/18/2019. No nuchal cord. EBL 350 mL. Apgars were 9 and 9 at 1 and 5 minutes respective ly. The perineum, vagina and cervix were inspected and found to have a second-degree perineal lacera tion, which was repaired using a 2-0 Vicryl on a CT1 needle in standard fashion under sterile conditi ons. She has been doing well in her course. She is ambulating and tolerating a regular diet. She is urinating without difficulty and her lochia is normal. Her pain is well controlled with oral medications. She will be discharged home today on day #2 with instructions to continue he r vitamin while . She has also been given instructions to continue ibuprofen a nd Tylenol [id number] as needed for pain management. She intends to follow up with me at [facility] [place] in 1 week for support visit if needed and in 3 weeks for routine pos tpartum visit. She has been given precautions to call if she has any worsening fevers, chills, abdom inal pain, increased bleeding or foul-smelling vaginal lochia. TD: 03/19/2019 10:14
== END 2019-03-19 13:15 | disposition home or self-care (01) | DRG 807 ==
LOC: WFO 12:17 → FBP 12:20 → WFO 12:26 → FBP 12:27 → UNDOADMOB 12:27 → OBSVTOIN 03-18 00:20 → INTOOBSV 03-18 00:20 → OBSVTOIN 03-18 00:32 → FBP 03-18 00:32 → UNDODISIN 03-19 13:15
PROVIDERS: ADMIT Nurse Practitioner Obstetrics & Gynecology; ATTEND Nurse Practitioner Obstetrics & Gynecology
PROC: 10E0XZZ Delivery of Products of Conception, External Approach (ICD-10-PCS; principal; 2019-03-18)
PROC: 0KQM0ZZ Repair Perineum Muscle, Open Approach (ICD-10-PCS; 2019-03-18)
DX: O13.4 Gestational [pregnancy-induced] hypertension without significant proteinuria, complicating childbirth (principal); O70.1 Second degree perineal laceration during delivery; Z37.0 Single live birth; O26.893 Other specified pregnancy related conditions, third trimester; Z67.11 Type A blood, Rh negative; Z3A.39 39 weeks gestation of pregnancy
CPT/HCPCS: 36415; 82570; 83615; 84156; 84450; 84550; 85025; A9270; G0378; J7120

== ENCOUNTER 2019-03-23 07:00 | Outpatient (CLI) | payer MEDICAID | END 2019-03-23 23:59 | disposition home or self-care (01) | LOC: LAB.R 07:00 | PROVIDERS: ATTEND Obstetrics & Gynecology | DX: O86.89 Other specified puerperal infections (principal) | CPT/HCPCS: 87070 ==

== ENCOUNTER 2019-03-23 15:12 | Inpatient (IN) | payer MEDICAID ==
[2019-03-23] MEDS ORDERED: SODIUM CHLORIDE FLUSH 0.9% 10 ML SYRINGE ONE ×3 (15:37→19:05)
[2019-03-23] MEDS ORDERED: VANCOMYCIN INJ 1 GM in SODIUM CHLORIDE 0.9% 500 ML IV STA (15:44)
[2019-03-23] MEDS ORDERED: VANCOMYCIN INJ 1 GM in SODIUM CHLORIDE 0.9% 250 ML IV ONE (15:58)
[2019-03-23] MEDS ORDERED: CLINDAMYCIN 900 MG/50 ML 50 ML IV SCH (16:00)
[2019-03-23] MEDS ORDERED: ERTAPENEM 1 GM in SODIUM CHLORIDE 0.9% MINIBAG 100 ML IV STA (16:08)
[2019-03-23 16:20] LABS: BASOPHILS % (AUTO) 0.3 %; EOSINOPHILS # (AUTO) 0.1 10^3/uL (0.0-0.7); EOSINOPHILS % (AUTO) 0.9 %; HGB - HEMOGLOBIN 11.5 g/dL (12.0-16.0); LYMPHOCYTES # (AUTO) 0.9 10^3/uL (1.5-3.5); LYMPHOCYTES % (AUTO) 7.5 %; MEAN CORPUSCULAR HGB CONC 34.2 g/dL (32.0-36.0); MEAN CORPUSCULAR VOLUME 96.3 fL (81.0-99.0); MEAN PLATELET VOLUME 9.1 fL (7.9-10.8); MONOCYTES # (AUTO) 0.6 10^3/uL (0.0-1.0); MONOCYTES % (AUTO) 4.9 %; NEUTROPHILS % (AUTO) 85.7 %; PLT - PLATELET COUNT 199 10^3/uL (130-450); RED BLOOD COUNT 3.49 10^6/uL (4.20-5.40); RED CELL DISTRIBUTION WIDTH 13.4 % (12.0-15.0); WHITE BLOOD COUNT 11.7 x10^3/uL (4.8-10.8)
[2019-03-23] MEDS ORDERED: ACETAMINOPHEN 500 MG TABLET PO PRN (16:37)
[2019-03-23] MEDS: IBUPROFEN 600 MG TABLET PO SCH ×2 (16:50→18:33)
[2019-03-23 16:54] LABS: ALBUMIN 3.3 g/dL (3.2-5.5); ALBUMIN/GLOBULIN RATIO 0.9 (1.0-2.2); BILIRUBIN,TOTAL 0.8 mg/dL (0.2-1.0); CALCIUM 8.8 mg/dL (8.5-10.3); CREATININE 0.8 mg/dL (0.4-1.0); TOTAL PROTEIN 7.1 g/dL (6.7-8.2)
--- NOTE | 2019-03-23 19:21 | HISTORY & PHYSICAL EXAMINATION ---
Chief Complaint - Chief Complaint Chief Complaint: 33 yo , PPD#5 s/p admitted with complex wound infection History of Present Illness - Admitted From Admitted From:: clinic - History of Present Illness HPI Comment/Other: Patient is a 33 yo s/p on 03/18/19 who presents with fever and myalgias. Seen in clinic for afore-mentioned complaint. complicated by GHTN. GBS negative. Underwent IOL on 03/17/19 with misoprostol x 3 doses. SROM at 00:20; rapid progression to complete with delivery at 3:56 am on 03/18/19. Second degree laceration. PP course uncomplicated. PP course unremarkable until approximately 12 am on 03/22/19. Had routine sitz bath in the afternoon. Partner noticed change in gait after bath but patient denies symptoms. Rigors and chills developed and approxiamtely midnight. Took tylenol and called CNM at 1 am. Counseled regarding expectant management and to call if symptoms persist. Max tempt 101.7F. Ibuprofen at 10:30 am and acetaminophen 1000 mg at 12:20. Normal temperature after acetaminophen but myalgia and chills continue. No specific areas on concern. Denies breast pain, warmth, induration, redness. Denies abdominal pain. Reports pain in perineum but believes appropriate for recent laceration and repair. Denies bleeding, foul odor, discharge. Exam in clinic revealed the following: Unremarkable breast and abdominal/fundal exam Perineum: Second degree laceration with wound breakdown/wound opening. Foul odor pervasive throughout clinic environment. Necrotic tissue from base of vagina through tissue overlying bilateral bulbocavernosa. Wooden tip of cotton swab used to identify areas with loss of sensation. Sensation intact to edge of wound. No sensation noted within medial aspect of wound. Cotton gauze was used to debride necrotic tissue. Patient and minimal sensation of the debridement and exhibited no discomfort during the process. Was able to evoke blood flow from wound bed after debriding overlying necrotic tissue. Sensation not intact even in areas of active bleeding. Wound culture collected. History - Past Medical History MRSA Hx?: No - POLST Patient has POLST: No Meds/Allgy - Home Medications Home Medications: Ambulatory Orders Medication Instructions Recorded Confirmed Vitamin [Trinatal Rx 1] 1 tab PO DAILY #30 tablet 07/29/18 - Allergies Allergies/Adverse Reactions: Allergies Allergy/AdvReac Type Severity Reaction Status Date / Time No Known Drug Allergies Allergy Verified 07/29/18 14:05 Review of Systems - Other Findings Other Findings: As per HPI, remaining systems are negative Exam - Vital Signs Vital Signs: Vital Signs x48h Temp Pulse Resp BP Pulse Ox 03/23/19 18:23 102.7 F H 106 H 18 126/80 99 03/23/19 16:58 100.0 F H 03/23/19 15:39 99.1 F 99 24 134/88 H 98 - Physical Exam General Appearance: positive: Mild distress Respiratory: positive: No respiratory distress, Breath sounds nml Cardiovascular: positive: Regular rate & rhythm Abdomen: positive: Non-tender, No distention, Other (soft, no fundal tenderness) Skin: positive: Color nml Extremities: positive: Non-tender Neurologic/Psychiatric: positive: Oriented x3, Mood/affect nml 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 Separation of labia reveals opened wound bed. Foul odor. Necrotic tissue debrided in clinic. Areas of black discoloration developing within wound bed where tissue would have been apposed within laceration repair. Extends dep into the vagina relative to prior exam. Non- tender. Discomfort rated 2/10 during exam with direct palpation of tissue and minimal sensation to surgical marking pen. Sepsis Event Note (H) - Sepsis Criteria Sepsis Criteria: Recorded Temperature greater than 38.3C or Less than 36C, Recorded Heart Rate greater than 90 bpm Conclusion/Plan - Lab Results Fish Bones: 03/23/19 16:00 03/23/19 16:30 - Other Other Results/Comments: Rapidly progressive wound infection with breakdown of repair, tissue necrosis, and loss of sensation. Given progress of infection over less than 24 hours of symptoms, concern for c omplex infection such as necrotizing fasciitis is high. Contacted [facility] and conferred with Dr. Nikki Carlson of Maternal Medicine -Recommended transfer to [facility] for management -Recommended providing IV antibiotics prior to transport. Vancomycin 1g IV xone Clindamycin 900 mg IV x one Ertapenem 1 g IV x one -Transport via ambulance per [facility] recommendation Sending patient to L&D for labs and IV antibiotics -Room isolated from labor suites -NPO for possible surgical intervention -CBC and CMP -Would cultures pending ETA: -Temperature trending up despite abx/acetaminophen/ibuprofen -HR trending up; mildly tachycardic -Lactate added to labs
[2019-03-23 19:23] VITALS: BP 146/93
--- NOTE | 2019-03-23 19:46 | DISCHARGE TRANSFER SUMMARY ---
Transfer Summary Admit Date: 03/23/19 Transfer Date: 03/23/19 Discharging Provider: Sofie Reynolds MD Code Status: Attempt Resuscitation Discharge Disposition: 02 Transfer Acute Care Hosp Discharge Facility Name: [facility] Transfer to Location: [facility] - DIAGNOSES Admission Diagnoses: Complex perineal wound infection c/f necrotizing fasciitis Discharge Diagnoses with Status of Each Condition: Same - HPI History of Present Illness: Patient is a 33 yo s/p on 03/18/19 who presents with fever and myalgias. Seen in clinic for afore-mentioned complaint. complicated by GHTN. GBS negative. Underwent IOL on 03/17/19 with misoprostol x 3 doses. SROM at 00:20; rapid progression to complete with delivery at 3:56 am on 03/18/19. Second degree laceration. PP course uncomplicated. PP course unremarkable until approximately 12 am on 03/22/19. Had routine sitz bath in the afternoon. Partner noticed change in gait after bath but patient denies symptoms. Rigors and chills developed and approxiamtely midnight. Took tylenol and called CNM at 1 am. Counseled regarding expectant management and to call if symptoms persist. Max tempt 101.7F. Ibuprofen at 10:30 am and acetaminophen 1000 mg at 12:20. Normal temperature after acetaminophen but myalgia and chills continue. No specific areas on concern. Denies breast pain, warmth, induration, redness. Denies abdominal pain. Reports pain in perineum but believes appropriate for recent laceration and repair. Denies bleeding, foul odor, discharge. Exam in clinic revealed the following: Unremarkable breast and abdominal/fundal exam Perineum: Second degree laceration with wound breakdown/wound opening. Foul odor pervasive throughout clinic environment. Necrotic tissue from base of vagina through tissue overlying bilateral bulbocavernosa. Wooden tip of cotton swab used to identify areas with loss of sensation. Sensation intact to edge of wound. No sensation noted within medial aspect of wound. Cotton gauze was used to debride necrotic tissue. Patient and minimal sensation of the debridement and exhibited no discomfort during the process. Was able to evoke blood flow from wound bed after debriding overlying necrotic tissue. Sensation not intact even in areas of active bleeding. Wound culture collected. - HOSPITAL COURSE Hospital Course: Patient was sent to Labor and Delivery directly from clinic for administration of IV antibiotics prior to transfer to the [facility]. Afebrile at time of presentation. NPO in anticipation of possible surgical intervention. CBC/CMP/lactate ordered. Medications administered: Vancomycin 1 g IV 17:35 Clindamycin 900 mg IV 18:41 Ertapenem 1 g IV 19:11 Ibuprofen 600 mg po 16:50 Acetaminophen 1000 mg 18:48 VS: 15:59 99.1 99 134/88 24 98% 16:58 100.0 18:23 102.7 106 126/80 18 Lactate 0.7 Perineum re-examined for marking margins of erythema. External presentation generally wnl, mild edema and warmth in labia. Parting of labia reveal wound breakdown, foul odor, areas of blackening in previously debrided wound bed. Minimal discomfort/sensation per patient. Appears to extend deep into wound bed proximally into the vaginal vault. Moisture precludes meaningful surgical marking. Patient completed course of antibiotics and was transferred to [facility] via BLS ambulance - ALLERGIES Allergies/Adverse Reactions: Allergies Allergy/AdvReac Type Severity Reaction Status Date / Time No Known Drug Allergies Allergy Verified 07/29/18 14:05 - MEDICATIONS Home Medications: Ambulatory Orders Medication Instructions Recorded Confirmed Vitamin [Trinatal Rx 1] 1 tab PO DAILY #30 tablet 07/29/18 - LABS Result Diagrams: 03/23/19 16:00 03/23/19 16:30 - TIME SPENT Time Spent in Discharge (Minutes): 60
== END 2019-03-23 19:28 | disposition short-term general hospital (02) | DRG 776 ==
LOC: OBS 15:25
PROVIDERS: ADMIT Obstetrics & Gynecology; ATTEND Obstetrics & Gynecology
DX: O86.09 Infection of obstetric surgical wound, other surgical site (principal); M72.6 Necrotizing fasciitis
CPT/HCPCS: 80053; 83605; 85025; A9270; J1335; J3370; 83615

== ENCOUNTER 2019-03-23 19:30 | Outpatient (CLI) | payer MEDICAID | END 2019-03-23 19:31 | disposition short-term general hospital (02) | LOC: EMS 19:30 | PROVIDERS: ATTEND Surgery | DX: O86.19 Other infection of genital tract following delivery (principal) | CPT/HCPCS: A0425; A0428 ==

== ENCOUNTER 2020-04-11 11:12 | Outpatient (CLI) | payer MEDICAID | END 2020-04-11 11:13 | disposition home or self-care (01) | LOC: COV 11:12 | PROVIDERS: ATTEND Family Medicine | DX: R53.83 Other fatigue (principal); R68.83 Chills (without fever); R07.0 Pain in throat; R19.7 Diarrhea, unspecified; Z20.828 Contact with and (suspected) exposure to other viral communicable diseases ==

== ENCOUNTER 2022-08-10 11:10 | Outpatient (CLI) | payer MEDICAID ==
--- NOTE | 2022-08-12 13:44 | SLEEP CARE CONSULTATION ---
Information from patient questionnaire entered by Adrianna Hinojosa. I have reviewed and concur with the information entered by Adrianna Hinojosa. This document represents the service I personally performed and the decisions made by me, Emmanuelle Desai MD, [facility]. History of Present Illness Service Date and Time: 08/10/2022 1110 Reason for Visit: New patient Chief Complaint: reports: Insomnia, Snoring, Excessive daytime sleepiness, Frequent awakenings at night Date of Onset: YRS Usual bedtime: 11PM Time it takes to fall asleep: 30-60MIN Snores at night: Yes Sleeps alone due to snoring: Yes Number of times waking at night: 2 Reasons for waking at night: reports: Other (UNKNOWN) Toss, Turn, or Twitch while sleeping: Yes Recalls having dreams: No Usually gets out of bed at: 8AM Feels refreshed in the morning: No Morning headache: No Sleepy or fatigued during the day: Yes Ever fallen asleep while driving: No Takes day naps: No Prior sleep studies: No Additional HPI information: I have the pleasure of seeing Ms. Cruz today regarding the possibility of her having obstructive sleep apnea. As you know, she is a 36-year-old lady who complains of frequent awakenings, persistent fatigue, and insomnia. The patient tells me that she normally goes to bed around 11 pm, and it takes her approximately 30 - 60 minutes to fall asleep. She has been told that she snores loudly and irregularly at night. She has never been observed to stop breathing in her sleep. Her bed partner sleeps in the same bed. She can recall waking up on the average of 1 time during the night. Most of the time she wakes up because of unknown reason. She has never awakened because of her own snoring, choking, or having to gasp for air. There is a lot of tossing and turning in her sleep. No somniloquy (sleep talking) or somnambulism (sleep walking). Gen erally, there is no recollection of dreams. In the morning she usually gets up out of the bed around 8 a.m. not feeling refreshed nor rested. She usually does not have a morning headache. During the day she complains of feeling fatigued but not sleepy. Her score on [place] Sleepiness Scale is 7 out of 24. She never has fallen asleep while driving nor has had any accident due to sleepiness. She usually does not take naps during the day. Upon falling asleep during the day she denies having vivid dreams. She has never had sleep paralysis, experienced cataplexy or symptoms of restless leg syndrome. She denies having impaired concentration during the day. - Parasomnia Symptoms Ever been unable to move upon waking from sleep: No Walks in sleep: No Talks in sleep: No Ever acted out dreams in sleep: No Ever felt weak in the knees when startled or emotional: No Bothered by creepy, crawly, restless sensations in legs: No Problems with memory or concentration: No Subjective Initial [place] Sleepiness Scale score: 8 (07/18/22) Social History The patient's occupation is a SE. Patient is and lives in [place]. Have you smoked in the past 12 months: No Alcohol use: No Caffeine use: Yes Caffeine amount and frequency: 3 WEEKLY Family History Family history of sleep disordered breathing: No Allergies and Home Medications Known drug allergies: No Drug allergies reviewed: Yes Home medication list reviewed: Yes Allergy and home medication list: Allergies No Known Drug Allergies Allergy (Verified 07/29/18 14:05) Review of Systems Weight gain over past 5 years: 20 Cardiovascular: reports: high blood pressure Respiratory: denies: shortness of breath, wheeze, sputum production, chronic cough, other Gastrointestinal: denies: heartburn, difficulty swallowing, nausea, vomitting, diarrhea, abdominal pain, other Neurological: denies: headaches, seizure, head trauma, disorientation, speech dysfunction, gait or balance problems, fainting or unconsciousness, other Ear/Nose/Throat: reports: nasal congestion Endocrine: denies: thyroid disease, history of goiter, sluggishness, too hot or cold, excessive thirst, increased appetite, increased urination, unexplained weakness, other Musculoskeletal: denies: joint pain, neck pain, back pain, joint swelling, muscle pain or cramping, mobility problems, other Immunologic: denies: sneezing, rash, itching, allergies to food or environment, other Physical Exam Vital signs obtained and entered by: ADRIANNA Allen MA Blood Pressure: 128/72 (LEFT ARM) Cuff size: regular Heart Rate: 69 O2 Saturation: 98 Height: 5 ft 3 in Weight: 187 lb 3.2 oz Body Mass Index: 33.1 BMI Classification: Obese Neck circumference: 15.75 Mood/affect: normal HEENT: No craniofacial malformation Nostrils: patent to airflow Turbinates: normal Septum: midline Mouth and throat: narrow oropharynx Soft palate: long Hard palate: normal Uvula: normal Uvula visualization: 50% Mallampati Class II Tongue: normal in size Tonsils: small Chin and jaw: normal size and position Neck: normal w/o lymphadenopathy or thyromegaly Heart: regular rate and rhythm Lungs: clear bilaterally Extremities: no edema or clubbing Neurologic: intact Impression and Plan IMPRESSION: 1. Obstructive Sleep Apnea-Hypopnea Syndrome, as evident by history of loud and irregular snoring, and persistent fatigue. Narrow oropharynx and obesity are common predisposing factors for obstructive sleep apnea-hypopnea syndrome. I recommend proceeding to polysomnography to confirm the diagnosis and to assess severity. If she has significant sleep disordered breathing, a manual CPAP titration study will also be performed to find the optimal treatment pressure. I informed the patient of what the sleep studies involve and after some discussion, she agreed to proceed. Plan: 1. Schedule polysomnography. 2. Avoid alcohol, sedatives and muscle relaxants around bedtime. 3. Try to lose weight. 4. Return for follow up after the sleep study. Follow up with Sleep Care in: 1-2 months Visit Type: In Office Time Spent with Patient (minutes): 15 Provider Statement: I spent 100% of the Face to Face Visit with the patient with greater than 50% spent counseling the patient and coordination of care.
[2022-08-12 13:45] VITALS: BP 128/72
== END 2022-08-10 11:11 | disposition home or self-care (01) ==
LOC: SC 11:10
PROVIDERS: ATTEND Internal Medicine Pulmonary Disease
DX: R53.83 Other fatigue (principal); R06.83 Snoring; E66.9 Obesity, unspecified; Z68.33 Body mass index [BMI] 33.0-33.9, adult; G47.00 Insomnia, unspecified
CPT/HCPCS: 99202; 99212

== ENCOUNTER 2022-08-31 20:35 | Outpatient (CLI) | payer MEDICAID | END 2022-08-31 20:36 | disposition home or self-care (01) | LOC: SC 20:35 | PROVIDERS: ATTEND Internal Medicine Pulmonary Disease | DX: R53.83 Other fatigue (principal); R06.83 Snoring; G47.8 Other sleep disorders | CPT/HCPCS: 95810 ==

== ENCOUNTER 2022-10-27 12:30 | Outpatient (CLI) | payer MEDICAID ==
--- NOTE | 2022-10-27 10:57 | SLEEP CARE CONSULTATION ---
Information from patient questionnaire entered by Florinda Hinojosa. I have reviewed and concur with the information entered by Florinda Hinojosa. This document represents the service I personally performed and the decisions made by , Leila Walker ARNP. History of Present Illness Service Date and Time: 10/27/2022 1040 Initial Charlotte Sleepiness Scale score: 8 (07/18/22) Current [place] Sleepiness Scale score: 6 Additional HPI information: DANIEL WARREN returns via video telehealth visit for follow up and results of the recently performed polysomnography. The patient was informed of the following findings: No significant sleep disordered breathing with an average AHI of 2.0 and bill oxygen saturation of 91%. I explained the pathophysiology behind obstructive sleep apnea. Patient does not have sleep apnea and was advised how weight gain could increase the risk of developing sleep apnea in the future. I strongly encouraged the patient to lose weight. Patient does not have significant sleep disordered breathing but has elevated AHI in supine position so advised positional therapy. Methods to achieve positional management therapy were discussed; such as, positioning with pillows, wearing a T-shirt with tennis balls sewn into the back or commercially available products. Patient has light snoring. Snoring can be reduced by weight loss. Weight loss is best achieved with diet consult. Patient instructed to contact PCP for referral. Snoring can also be treated with an oral appliance from a dentist. Advised to check insurance coverage. In addition, an ENT evaluation can be do to see if other treatment is indicated. Patient does not drink alcohol. Patient was cautioned about risks of drowsy driving until sleepiness symptoms resolve. Patient denies drowsy driving. Sleep Study - Results Type of Sleep Study: Polysomnography (COMPLETED 08/31/22) Prior sleep studies: No Polysomnography/Home Sleep Study results: IMPRESSION: The quality of the study is good. The patient had slightly reduced sleep efficiency due to frequent short awakenings throughout the night. The sleep architecture was abnormal for sleep fragmentation and reduced amount of time spent in slow wave sleep (N3). Respiratory monitoring showed no significant sleep disordered breathing (AHI = 2.0) or hypoxia (bill oxygen saturation of 91%). The few respiratory events occurred mainly during supine sleep (supine AHI = 6.5; non-supine = 1.10). Snore was infrequent and light in intensity. There was no significant periodic leg movement of sleep. Cardiac rhythm was normal sinus rhythm without significant arrhythmia. No abnormal behavior (parasomnia) observed during the night. Allergies and Home Medications Known drug allergies: No Drug allergies reviewed: Yes Home medication list reviewed: Yes (Flonase, Zyrtec) Allergy and home medication list: Allergies No Known Drug Allergies Allergy (Verified 10/26/22 14:50) Review of Systems Review of systems same as previous: No (allergies) Physical Exam Vital signs obtained and entered by: FLORINDA Allen MA Height: 5 ft 3 in Weight: 185 lb Body Mass Index: 32.8 BMI Classification: Obese Impression and Plan Snoring but no significant sleep disordered breathing. However, patient had a slightly elevated supine AHI at 6.5 and should avoid sleeping supine to control apneas. Patient advised that often weight loss will reduce snoring as well as apnea risk. An oral appliance can also be used for snoring. This would require a dental consultation. Patient cautioned not to use other online appliances as can cause bite issues. A list of accredited dentists in area and one local dentist who makes oral appliances given. Patient is advised to check if insurance will cover. An ENT consult can also be helpful to determine if any other treatment is an option. 2. Obesity, unspecified. Currently patients BMI is 32.8. Obesity increases the risk of apnea, CPAP pressure requirements and overall health risks especially cardiovascular and diabetes. Thus patient is advised to lose weight. * Attempt to lose weight * Avoid alcohol consumption near bedtime * The patient is cautioned about driving until sleepiness is completely resolved. * Return as needed for follow up. Counseling Topics: Sleeping position, Weight loss health impact Visit Type: Telehealth Video Video Type: Fazal Patient Location: Home Location of Provider: Office Patient agrees and consents to this telehealth visit type: Yes Patient agrees to have their insurance billed: Yes Time Spent with Patient (minutes): 22 Provider Statement: I spent 100% of the Telehealth Video Call with the patient with greater than 50% spent counseling the patient and coordination of care.
== END 2022-10-27 12:31 | disposition home or self-care (01) ==
LOC: SC 12:30
PROVIDERS: ATTEND Nurse Practitioner Family
DX: R06.83 Snoring (principal); Z68.32 Body mass index [BMI] 32.0-32.9, adult; E66.9 Obesity, unspecified

== ENCOUNTER 2023-09-08 14:07 | Outpatient (CLI) | payer MEDICAID ==
[2023-09-08 20:02] LABS: BASOPHILS % (AUTO) 0.6 %; EOSINOPHILS # (AUTO) 0.1 10^3/uL (0.0-0.7); EOSINOPHILS % (AUTO) 1.5 %; HGB - HEMOGLOBIN 14.3 g/dL (12.0-16.0); LYMPHOCYTES # (AUTO) 1.8 10^3/uL (1.5-3.5); LYMPHOCYTES % (AUTO) 26.7 %; MEAN CORPUSCULAR HEMOGLOBIN 30.4 pg (27.0-31.0); MEAN CORPUSCULAR HGB CONC 32.5 g/dL (32.0-36.0); MEAN CORPUSCULAR VOLUME 93.4 fL (81.0-99.0); MEAN PLATELET VOLUME 10.2 fL (7.9-10.8); MONOCYTES # (AUTO) 0.4 10^3/uL (0.0-1.0); MONOCYTES % (AUTO) 5.3 %; NEUTROPHILS # (AUTO) 4.3 10^3/uL (1.5-6.6); NEUTROPHILS % (AUTO) 65.6 %; PLT - PLATELET COUNT 256 10^3/uL (130-450); RED BLOOD COUNT 4.71 10^6/uL (4.20-5.40); RED CELL DISTRIBUTION WIDTH 12.5 % (12.0-15.0); WHITE BLOOD COUNT 6.6 x10^3/uL (4.8-10.8)
[2023-09-08 20:23] LABS: ALBUMIN 4.6 g/dL (3.2-5.5); ALBUMIN/GLOBULIN RATIO 1.8 (1.0-2.2); ALKALINE PHOSPHATASE 30 IU/L (42-121); ALT ALANINE AMINOTRANSFERASE 36 IU/L (10-60); AST ASPARTATE AMINOTRANSFERASE 21 IU/L (10-42); BILIRUBIN,TOTAL 0.6 mg/dL (0.2-1.0); BUN - BLOOD UREA NITROGEN 11 mg/dL (6-20); CALCIUM 9.1 mg/dL (8.5-10.3); CARBON DIOXIDE - CO2 23 mmol/L (21-32); CHLORIDE 107 mmol/L (101-111); CREATININE 0.7 mg/dL (0.6-1.3); CRP - C-REACTIVE PROTEIN < 0.5 mg/dL (<0.5); GFR - MDRD 93 (>89); GLUCOSE 86 mg/dL (74-104); LIPASE 15 U/L (11-82); POTASSIUM 4.1 mmol/L (3.5-4.5); SODIUM 138 mmol/L (135-145); TOTAL PROTEIN 7.2 g/dL (6.4-8.9); TRIGLYCERIDES 199 mg/dL (48-352)
== END 2023-09-08 14:08 | disposition home or self-care (01) ==
LOC: LAB.S 14:07
PROVIDERS: ATTEND Registered Nurse
DX: R10.9 Unspecified abdominal pain (principal)
CPT/HCPCS: 36415; 80053; 83690; 84478; 85025; 86140

== ENCOUNTER 2023-10-02 12:51 | Outpatient (CLI) | payer MEDICAID ==
--- NOTE | 2023-10-03 06:27 | Ultrasound Report ---
PROCEDURE: Pelvic w/Transvaginal INDICATIONS: RUQ PAIN, LLQ PAIN TECHNIQUE: Real-time scanning was performed of the pelvic organs, with image documentation. Additional endovagi nal scanning was necessary due to incomplete visualization of the adnexal and endometrial structures by transabdominal scanning. COMPARISON: None. FINDINGS: Uterus: 9 x 6 x 6 cm. Heterogeneous echotexture. Anteverted positioning. Endometrium measures 1.2 cm, which is at the upper limit of normal. Uterine fibroids, including a subserosal fibroid in the fundus measuring 5.5 x 4.8 cm. Possible intramural fibroid with cystic components which may represent degenerative components, measu ring 1.2 x 1.2 cm. Ovaries: Enlarged ovaries bilaterally measuring 57 cc on the right and 74 cc on the left. "Kissing ov alvaro configuration", tethered behind the uterus. Multiple low level echogenic homogenous cystic lesions, measuring up to 5 x 4.2 cm on the right and 4 .6 x 4.3 cm on the left. Color flows are seen today, no spectral Doppler was evaluated. Other: No pathologic free fluid. 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 Enlarged fibroid uterus. Additional adenomyosis is possible. Recommend pelvic MRI if further imaging is needed, and gynecologic follow-up. This was marked for com munication in PACS. Reviewed by: Robin Arriola MD on 10/03/2023 6:26 AM PDT Approved by: Robin Arriola MD on 10/03/2023 6:26 AM PDT Station ID: [id number]
--- NOTE | 2023-10-03 06:29 | Ultrasound Report ---
PROCEDURE: Abdomen Limited INDICATIONS: RUQ PAIN, LLQ PAIN TECHNIQUE: Real-time focused scanning was performed of the abdomen, with image documentation. COMPARISONS: None. FINDINGS: Liver measures 18 cm. Overall increased echogenicity. Suspected focal fatty sparing adjacent to gallb ladder measuring 1.3 cm. Gallbladder is within normal limits. CBD measures 4 mm, within normal limits. Pancreas is unremarkable. Right kidney measures 10 cm IVC is patent. Main portal vein is hepatopedal. IMPRESSION: No acute right upper quadrant abnormality by ultrasound. Increased hepatic echogenicity, nonspecific, most commonly due to steatosis. There is borderline hepa tomegaly. Reviewed by: Robin Arriola MD on 10/03/2023 6:28 AM PDT Approved by: Robin Arriola MD on 10/03/2023 6:28 AM PDT Station ID: [id number]
== END 2023-10-02 12:52 | disposition home or self-care (01) ==
LOC: DI 12:51
PROVIDERS: ATTEND Registered Nurse
DX: N80.123 Deep endometriosis of bilateral ovaries (principal); D25.2 Subserosal leiomyoma of uterus

== ENCOUNTER 2023-10-19 09:58 | Outpatient (CLI) | payer MEDICAID ==
[~2023-10-19 09:58] MED LIST: GADOTERATE MEGLUMINE 10 MMOL/20 ML VIAL ONE
--- NOTE | 2023-10-19 11:51 | MRI Report ---
PROCEDURE: Pelvis W/WO INDICATIONS: ENDOMETRIOSIS CONTRAST: IV contrast TECHNIQUE: Coronal ultra fast SE, sagittal T2 FSE, axial T1 FSE, axial and coronal nonbreath-hold T2 FSE. Axial dynamic ultra fast GE during administration of contrast. Post-contrast axial and coronal ultra fast GE / 2-D spoiled GE with fat saturation from the iliac crests to the symphysis. Optional diffusion weighted imaging and ADC may be performed. COMPARISON: 10/02/2023 ultrasound FINDINGS: Image quality: Diagnostic Lower abdomen: No bowel obstruction. No pathologic ascites. Bladder: Underdistended and not well evaluated Reproductive organs: The uterus is anteverted and retroflexed. Endometrium measures 1.2 cm, which is at the upper limit of normal. There are numerous nabothian cysts. A 4.6 x 3.1 cm posterior uterine in tramural lesion with internal hemorrhagic products and cystic changes is seen. This is difficult to d istinguish from the junctional zone, which is borderline thickened at 12 to 13 mm. The ovaries are enlarged bilaterally. Bilateral endometriomas are seen measuring up to 5 cm on the ri ght and 4.1 cm on the left. These are multiple locules with varying degrees of T2 shading. On precontrast T1-weighted images, there are small intrinsic deep pelvic foci of T1 intensity, along with possible fibrotic changes in the cul-de-sac on T2-weighted images Rectum: Unremarkable Vessels and lymph nodes: No aneurysmal vessel in the [id number]. No pathologic lymph nodes by size criteria. Pelvic wall: Unremarkable Bones: No acute or suspicious osseous finding. IMPRESSION: Bilateral ovarian endometriomas confirmed on MRI, with multiple locules. The ovaries are in contact b ehind the uterus bilaterally, with surrounding fibrotic changes on T2-weighted images and intrinsic T 1 hyperintense foci on precontrast T1-weighted images, suggestive of deep pelvic infiltrating endomet riosis. Continued imaging follow-up is suggested, as these have risk of malignant transformation. Posterior uterine intramural complex lesion with hemorrhagic and cystic changes, favored to represent focal adenomyomatosis, differential includes degenerating fibroid. Gynecologic follow-up is also recommended for the above findings. Reviewed by: Robin Arriola MD on 10/19/2023 11:50 AM PDT Approved by: Robin Arriola MD on 10/19/2023 11:50 AM PDT Station ID: [id number]
[2023-10-19] MEDS: GADOTERATE MEGLUMINE 10 MMOL/20 ML VIAL IVP ONE (18:35)
== END 2023-10-19 09:59 | disposition home or self-care (01) ==
LOC: DI 09:58
PROVIDERS: ATTEND Registered Nurse
DX: N80.123 Deep endometriosis of bilateral ovaries (principal)
CPT/HCPCS: 72197; A9575